=== PATIENT | male | born 1945 | race Caucasian/White ===

== ENCOUNTER 2021-08-26 19:23 | Emergency (ER) | payer MEDICARE, SELFPAY ==
--- NOTE | ~2021-08-26 | CT_ITS ---
EXAMINATION: CT lumbar spine wo con DATE: 08/26/2021 20:13 INDICATION: fall 20 days ago with persistant pain and numbness . TECHNIQUE: Computed tomography (CT) of the thoracic spine was performed without intravenous contrast. Automated exposure control and iterative reconstruction technique were employed. The dose-length pro duct was 1322.53 mGy-cm. COMPARISON: None. FINDINGS: 5 nonrib-bearing lumbar-type vertebral bodies. Pedicles intact. Normal vertebral body align ment. Vertebral body heights preserved. Moderate degenerative disc disease at L4-5. Bilateral L5 pars defects. Normal facets and posterior elements. Right adrenal adenoma. Atherosclerotic abdominal yousif rial calcifications. Bilateral SI joint fusion. IMPRESSION: 1. No acute fracture or traumatic malalignment detected in the lumbar spine. Reviewed, dictated and finalized at location K.
--- NOTE | ~2021-08-26 | XR_ITS ---
EXAM: XR hip RT 2V w AP pelvis DATE: 08/26/2021 20:02 HISTORY: fall 20 days ago persistant pain . COMPARISON: None available. FINDINGS: Decreased mineralization. No fracture or dislocation. No lytic or blastic lesion. Lower shea mbar degenerative change. Bilateral hip osteoarthritis. Scattered enthesopathy. No erosion or periost eal change. Soft tissues within normal limits. IMPRESSION: No acute osseous finding in the pelvis or right hip. Reviewed, dictated and finalized at location K.
[2021-08-26 19:22] VITALS: BP 130/66; PULSE 91; RESP 16; TEMP 36.8; O2SAT 96
[2021-08-26] MEDS: KETOROLAC 30 MG/ML VIAL (*BKC) IM (21:18)
[2021-08-26] MEDS: CYCLOBENZAPRINE HCL 10 MG TABLET PO (21:18)
--- NOTE | 2021-08-26 21:18 | ED.BACK ---
HPI - Back Pain/Injury General Chief Complaint: Back Pain/Injury Stated Complaint: right lower back pain radiating down leg Time Seen by Provider: 08/26/21 19:30 Source: patient History of Present Illness HPI Narrative: Patient presents with low back pain and hip pain. Patient reports he fell in the beginning of the month on concrete he is unsure how happened. He was monitoring his symptoms and his symptoms are worsening is having increasing pain as well as some paresthesias going down his right leg. He has took Tylenol this morning but is not typically taking any medications to control his symptoms he has not previously been evaluated for this. Denies any bowel or bladder incontinence denies any fevers or major changes in weight denies any history of IV drug use. Reports his pain is achy, constant, radiates down his leg, worse with moving his torso. Related Data Allergies Allergy/AdvReac Type Severity Reaction Status Date / Time No Known Allergies Allergy Verified 08/26/21 21:17 Review of Systems Review of Systems: CONSTITUTIONAL: Denies fever, chills, or sweats. EYES: Denies visual changes, redness, or discharge. ENT: Denies rhinorrhea, congestion, sore throat, or otalgia. CARDIOVASCULAR: Denies chest pain, palpitations, or edema. RESPIRATORY: Denies cough or dyspnea. GASTROINTESTINAL: Denies abdominal pain, nausea, vomiting, or diarrhea. GENITOURINARY: Denies dysuria or hematuria. SKIN: Denies rash or itching. MUSCULOSKELETAL: Denies joint pain, or myalgia. NEUROLOGIC: Denies headache, numbness, dizziness, or weakness. PSYCHIATRIC: Denies anxiety or depression. All systems reviewed & are unremarkable except as noted in HPI and below PMFSH Past Medical History Medical History (Updated 08/26/21 @ 21:26 by Romel Douglas MD) A-fib Back pain with history of spinal surgery Diabetes Hypertension Social History Social History (Updated 08/26/21 @ 21:23 by Romel Douglas MD) Living arrangements: with family Exam Narrative: GENERAL: Well-appearing, well-nourished, and in no acute distress. HEAD: Normocephalic, atraumatic. EYES: PERRLA and EOMI. ENT: Nares clear, no rhinorrhea or epistaxis. Mucous membranes moist. NECK: Supple. No masses. No JVD BACK: Moderate tenderness palpation of the right paraspinal muscles around L4 EXTREMITIES: Normal range of motion. No edema. SKIN: Warm, dry, no rash. NEURO: 5 out of 5 strength of bilateral lower extremities with sensation intact to light touch alert and oriented x3. PSYCH: Normal mood and affect. Course Reevaluation(s) Reevaluation #1: Patient reports feeling improved results plan reviewed with patient. Patient is comfortable outpatient plan. Date: 08/26/21 Time: 21:24 Vital Signs Vital signs: Vital Signs Temperature 36.8 C 08/26/21 19:22 Pulse Rate 91 08/26/21 19:22 Respiratory Rate 16 08/26/21 19:22 Blood Pressure 130/66 08/26/21 19:22 Pulse Oximetry 96 08/26/21 19: Temperature 36.8 C 08/26/21 19:22 Pulse Rate 91 08/26/21 19:22 Respiratory Rate 16 08/26/21 19:22 Blood Pressure 130/66 08/26/21 19:22 Pulse Oximetry 96 08/26/21 19:22 MDM - Back Pain/Injury MDM Narrative Medical decision making narrative: H&P as above, vss, pt looks clinically well, exam without focal neurological deficits, imaging without acute process, additional labs/img considered, symptomatic relief available as needed, on reevaluation pt continues to looks clinically well. Suspect muscle strain with sciatica, dns fracture, cord compromise, cauda equina, conus medullaris. plan to tx/monitor as op w/ pcm f/u findings/plan discussed with pt, pt agree/comfortable with plan, return precautions given Imaging Data Radiologist's impression: Impressions Hip/Pelvis X-Ray 08/26/21 20:09 IMPRESSION: No acute osseous finding in the pelvis or right hip. Lumbar Spine CT 08/26/21 20:22 IMPRESSION: 1. No acute fracture or traumatic malalignment det
== END 2021-08-26 21:46 | disposition home or self-care (01) ==
PROVIDERS: Emergency Provider Emergency Medicine
DX: S39.012A Strain of muscle, fascia and tendon of lower back, initial encounter (principal); M54.16 Radiculopathy, lumbar region; I48.91 Unspecified atrial fibrillation; E11.9 Type 2 diabetes mellitus without complications; I10 Essential (primary) hypertension; W19.XXXA Unspecified fall, initial encounter
CPT/HCPCS: 72131; 73502; 96372; 99284; A9270; J1885

== ENCOUNTER 2022-01-25 14:44 | Outpatient (CLI) | payer MEDICARE, SELFPAY ==
--- NOTE | ~2022-01-25 | MR_ITS ---
EXAMINATION: MR cervical spine wo/w con DATE: 01/25/2022 15:42 INDICATION: Neck pain. TECHNIQUE: Magnetic resonance imaging (MRI) of the cervical spine was performed without and with 20 m L MultiHance intravenous contrast. COMPARISON: None FINDINGS: Bone alignment is normal. There are changes of anterior fusion procedure at C6-C7 with inte rbody device. Vertebral body heights are normal. There is moderately decreased disc height at C3-C4. The spinal cord signal intensity is normal. The following disc levels are specifically discussed: C2-C3: There is a central protrusion. There is mild left uncovertebral joint osteoarthritis. There is no facet joint osteoarthritis. There is no neural foraminal stenosis. There is mild central canal st enosis. C3-C4: The disc is bulging. There is mild bilateral uncovertebral joint osteoarthritis. There is mode rate bilateral facet joint osteoarthritis. There is mild bilateral neural foraminal stenosis. There i s mild central canal stenosis. C4-C5: There is a central protrusion. There is mild bilateral uncovertebral joint osteoarthritis. The re is mild bilateral facet joint osteoarthritis. There is no neural foraminal stenosis. There is mild central canal stenosis. C5-C6: The disc is bulging. There is mild bilateral uncovertebral joint osteoarthritis. There is no f acet joint osteoarthritis. There is no neural foraminal stenosis. There is mild central canal stenosi s. C6-C7: There is no uncovertebral joint osteoarthritis. There is no facet joint osteoarthritis. There is no neural foraminal stenosis. There is no central canal stenosis. C7-T1: The disc does not extend beyond the endplate margin. There is no uncovertebral joint osteoarth ritis. There is mild bilateral facet joint osteoarthritis. There is no neural foraminal stenosis. The re is no central canal stenosis. IMPRESSION: 1. Moderate spondylosis at C3-C4 and mild spondylosis at other levels. 2. Anterior fusion procedure at C6-C7. Reviewed, dictated and finalized at location A.
--- NOTE | ~2022-01-25 | XR_ITS ---
EXAMINATION: XR lumbar spine min 4V DATE: 01/25/2022 17:00 INDICATION: Dorsalgia. Right-sided sciatica. TECHNIQUE: 5 views of lumbar spine including flexion and extension views were obtained. COMPARISON: CT lumbar spine 08/26/2021 FINDINGS: Bone alignment is normal. The spine is hypomobile with flexion and extension. There is mild chronic anterior wedging of L1 vertebral body. There is mildly decreased disc height at L4-L5. There are chronic bilateral L5 pars defects. There are endplate osteophytes at most levels. There is multi level mild facet joint osteoarthritis. IMPRESSION: 1. Chronic bilateral L5 pars defects. No spondylolisthesis. 2. Mild lumbar spondylosis. Reviewed, dictated and finalized at location A.
== END 2022-01-25 14:45 | disposition home or self-care (01) ==
PROVIDERS: Visit Provider Neurological Surgery
DX: M54.2 Cervicalgia (principal); M47.812 Spondylosis without myelopathy or radiculopathy, cervical region; M54.9 Dorsalgia, unspecified; M54.31 Sciatica, right side; M47.816 Spondylosis without myelopathy or radiculopathy, lumbar region; Z98.1 Arthrodesis status
CPT/HCPCS: 72110; 72156; A9577

== ENCOUNTER 2022-08-27 19:13 | Inpatient (IN) | payer MEDICARE, SELFPAY ==
--- NOTE | ~2022-08-27 | XR_ITS ---
XR abdomen obstructive series 08/29/2022 08:50 Indication: Pneumatosis intestinalis. Abdominal distention. Procedure: Supine and upright views of abdomen Comparison: 08/28/2022 Findings: Persistent dilated colon, consistent with ileus. Laparotomy staple line noted. There are ch anges of fusion at the lumbosacral junction. There are changes of ventral hernia repair. No free air is identified. Impression: 1: Unchanged distended colon, compatible with ileus. Reviewed, dictated and finalized at location D. Impression: 1: Unchanged distended colon, compatible with ileus.
--- NOTE | ~2022-08-27 | XR_ITS ---
EXAMINATION: XR abdomen obstructive series DATE: 08/28/2022 09:12 INDICATION: Abdominal distention. Right sided abdominal pain. TECHNIQUE: Upright and supine views of the abdomen on 3 radiographs were obtained. COMPARISON: CT abdomen and pelvis 08/27/2022 FINDINGS: The transverse colon and ascending colon are distended. The small bowel is normal in calibe r. Skin jong are noted. No free intraperitoneal gas. There are changes of anterior and posterior f usion procedures in lumbosacral spine. IMPRESSION: 1. Distended colon, consistent with adynamic ileus. Reviewed, dictated and finalized at location A.
--- NOTE | ~2022-08-27 | CT_ITS ---
EXAMINATION: CT abdomen pelvis w con DATE: 08/27/2022 21:15 INDICATION: Right upper quadrant pain TECHNIQUE: Computed tomography (CT) of the abdomen and pelvis was performed with 100 mL Omnipaque-350 intravenous contrast. Automated exposure control and iterative reconstruction technique were employe d. The dose-length product was 1380.58 mGy-cm. COMPARISON: CT lumbar spine 08/26/2021, PET/CT 10/29/2011. FINDINGS: Lower thorax: Coronary artery calcification. Liver: Normal. Biliary/Gallbladder: Gallbladder is normal. No bile duct dilation. Pancreas: No mass or duct dilation. Spleen: Normal. Adrenals: Right adrenal adenoma. Kidneys: No obstructing calcification. No suspicious mass. Moderate bilateral perinephric stranding. No hydronephrosis. GI tract: No small bowel dilation. Marked large bowel dilation involving the cecum, ascending colon, and transverse colon, transition pneumatosis involving the cecum and ascending colon point at the spl enic flexure. Inflammatory change and minimal fluid adjacent to the cecum and ascending colon. Append ix not identified. Diverticulosis without diverticulitis. Mesentery/Peritoneum: No ascites, mass, or free air. Retroperitoneum: No mass. Pelvis: Pelvic organs are within normal limits. Soft Tissues: Soft tissues and body wall unremarkable. Bones: No acute osseous finding. IMPRESSION: Dilated large bowel with pneumatosis from the cecum to the splenic flexure, concerning for toxic coli tis as can be seen with ischemic, infectious, and inflammatory etiologies. Reviewed, dictated and finalized at location K. IMPRESSION: Dilated large bowel with pneumatosis from the cecum to the splenic flexure, con cerning for toxic colitis as can be seen with ischemic, infectious, and inflamm atory etiologies.
--- NOTE | ~2022-08-27 | US_ITS ---
US abdomen limited INDICATION: Elevated liver function tests. Right upper quadrant pain. PROCEDURE: Realtime right upper abdominal ultrasound. COMPARISON: No prior studies for comparison. FINDINGS: The pancreas is normal without focal mass or pancreatic ductal dilation. Liver echotexture is increased, consistent with fatty infiltration of the liver. There is normal directional flow in the portal vein. There is gallbladder wall thickening. No definite gallstones. Common bile duct measures 4 mm. No so nographic Glover's sign. IMPRESSION: 1: Gallbladder wall thickening measuring 5 mm. This could indicate interstitial edema, chronic liver disease or chronic cholecystitis. 2: Hepatic steatosis. Reviewed, dictated and finalized at location B.
[2022-08-27 19:24] VITALS: BP 128/99; PULSE 117; RESP 14; TEMP 36.6; O2SAT 97
--- NOTE | 2022-08-27 19:26 | ECG_ITS ---
Measurements Intervals [place] Rate: 116 P: [place]: 0 QRS: 15 QRSD: 90 T: 7 QT: 311 QTc: 433 Interpretive Statements ATRIAL FIBRILLATION WITH RAPID VENTRICULAR RESPONSE LOW QRS VOLTAGE IN PRECORDIAL LEADS BORDERLINE T WAVE ABNORMALITY- INFERIOR LEADS ABNORMAL ECG NO PREVIOUS ECG AVAILABLE FOR COMPARISON Electronically Signed On 08-27-2022 20:51:45 CDT by Lowell Klein D.O.
[2022-08-27 19:44] LABS: Basophils Absolute Auto 0.1 K/mm3 (0.0-0.1); Basophils Percent Auto 0.4 % (0.2-1.2); Eosinophils Absolute Auto 0.2 K/mm3 (0-0.3); Eosinophils Percent Auto 1.8 % (0-4.4); Hematocrit 35.9 % (42.0-52.0); Hemoglobin 11.5 g/dL (14.0-18.0); Immature Granulocyte Absolute 0.05 K/mm3 (0.00-0.031); Immature Granulocyte Percent A 0.4 % (0-0.5); Lymphocytes Absolute Auto 0.96 K/mm3 (0.9-3.2); Lymphocytes Percent Auto 7.4 % (18.3-44.2); Mean Corpuscular Hemoglobin 29.9 pg (26-34); Mean Corpuscular Volume 93.5 fl (80-100); Mean Platelet Volume 9.6 fl (7.4-10.4); Monocytes Absolute Auto 1.2 K/mm3 (0.1-0.6); Neutrophils Absolute Auto 10.6 K/mm3 (1.3-6.7); Platelet Count Result 386 k/mm3 (150-375); Red Blood Count 3.84 M/mm3 (4.6-6.20)
[2022-08-27 19:57] LABS: Alanine Aminotransferase 82 U/L (6-50); Albumin Level 3.7 g/dL (3.5-5.1); Alkaline Phosphatase 182 U/L (38-126); Anion Gap 4 mmol/L (8-16); Aspartate Amino Transferase 72 U/L (17-59); Bilirubin,Total 1.3 mg/dL (0.2-1.3); Blood Urea Nitrogen 21 mg/dL (9-20); Calcium 9.4 mg/dL (8.4-10.2); Carbon Dioxide 32 mmol/L (22-30); Chloride 104 mmol/L (98-107); Estimated CRCL calculation 61 ml/min; Estimated Glomerular Filt Rate > 60; Glucose 135 mg/dL (65-110); Lipase 110 U/L (23-300); Potassium 3.9 mmol/L (3.4-5.0); Sodium 140 mmol/L (137-145)
--- NOTE | 2022-08-27 20:16 | ED.ABDPAIN ---
HPI - Abdominal Pain General Chief Complaint: Abdominal Pain Stated Complaint: abdominal pain Time Seen by Provider: 08/27/22 20:16 Source: patient Mode of arrival: ambulatory Limitations: no limitations History of Present Illness HPI narrative: 76 years old white male came to the emergency room by private car complaining of right upper quadrant pain that started 8 hours prior to arrival, patient was sitting watching TV suddenly had pain at the right upper quadrant, like a knife, constant. He denies any fever, chills, nausea, vomiting. History of lower back surgery at [facility] 1 week ago. History of hernia repair, diabetes, hypertension, hyperlipidemia, DM and COPD. Patient does not smoke or drink or uses drugs. Related Data Home Medications Medication Instructions Recorded Confirmed albuterol sulfate 90 mcg/actuation 1 inh inhalation Q4H 12/07/21 05/31/22 aerosol inhaler allopurinol 300 mg tablet 150 mg PO DAILY 12/07/21 05/31/22 apixaban 2.5 mg tablet (Eliquis) 2.5 mg PO BID 12/07/21 05/31/22 cholecalciferol (vitamin D3) 10 10 mcg PO DAILY 12/07/21 05/31/22 mcg (400 unit) capsule metformin 500 mg/5 mL oral 500 mg PO DAILY 12/07/21 05/31/22 suspension,extended release metoprolol succinate 50 mg 50 mg PO DAILY 12/07/21 05/31/22 tablet,extended release 24 hr montelukast 10 mg tablet 10 mg PO DAILY 12/07/21 05/31/22 (Singulair) omeprazole 10 mg capsule,delayed 10 mg PO DAILY 12/07/21 05/31/22 release atorvastatin 40 mg tablet 40 mg PO DAILY 06/17/22 fluticasone 250 mcg-salmeterol 50 1 inh inhalation BID 06/17/22 mcg/dose blistr powdr for inhalation (Wixela Inhub) losartan 25 mg tablet 25 mg PO DAILY 06/17/22 tiotropium bromide 1.25 2 puff inhalation DAILY 06/17/22 mcg/actuation mist for inhalation (Spiriva Respimat) Allergies Allergy/AdvReac Type Severity Reaction Status Date / Time No Known Allergies Allergy Verified 08/27/22 19:14 Review of Systems Review of Systems: All systems reviewed & are unremarkable except as noted in HPI and below PMFSH Past Medical History Medical History A-fib Asthma Back pain with history of spinal surgery Cervical spondylosis COPD (chronic obstructive pulmonary disease) Diabetes History of blood clots Hypertension Preoperative clearance Trigger finger Surgical History Surgical History H/O colonoscopy History of back surgery 08/20/22 Family History Family History Father Diabetes mellitus Hypertension Cerebrovascular accident Sibling Cancer Social History Social History Smoking status: Never smoker Alcohol intake: current Substance use: never Lack of Transportation: No Lack of Food: Never True Current Housing: I Have Housing Concerned About Future Housing: No Difficulty Paying Gas/Electric Bills: No Difficulty Paying for Meds: No Currently Unemployed: No Education: High School Diploma/GED Difficulty w/ Childcare or Family Care: No Living arrangements: with family Occupation/Education: retired Gender identity (if verbalized by the patient): Male Sexual Orientation (if Verbalized by the Patient): Straight or Heterosexual Spiritual care concerns: No Agree to blood products: Yes Exam Narrative: General appearance: Well-developed, well-nourished Skin: Normal color Head: Normocephalic, nontraumatic Eyes: Clear conjunctiva ENT: Oropharynx normal, ears normal, nose normal Neck: Supple, nontender Chest and respiratory: Airway patent, no respiratory distress, no accessory muscle use Heart: Regular rate/rhythm Abdomen: Distended abdomen, severe tenderness right upper quadrant, positive Glover sign Vascular: Normal peripheral pulses, normal capillary refill. Musculoskeletal: Normal r
[2022-08-27] MEDS: SODIUM CHLORIDE 0.9% IV 1,000 ML 999 ML IV CONT (20:55)
[2022-08-27] MEDS: HYDROmorphone HCL INJ (*CRX) 1 MG/ML SYR 0.5 MG IV PUSH (20:56)
[2022-08-27] MEDS: ONDANSETRON INJ 4 MG/2 ML VIAL IV PUSH (20:56)
[2022-08-27] MEDS: PIPERACILLN/TAZ 3.375GM/NS50ML 3.375 GM/50 ML BAG IVPB (22:09)
[2022-08-27 22:45] VITALS: BP 112/64; PULSE 98; RESP 16; O2SAT 96
[2022-08-27 23:07] LABS: Appearance Urine Clear (Clear); Bacteria Urine None Seen /hpf; Bilirubin Urine Negative (Negative); Blood Urine Negative (Negative); Color Urine Yellow (Yellow); Glucose Urine UA Negative (Negative); Ketones Urine Trace mg/dL (Negative); Leukocyte Esterase Ur Negative LEU/UL (Negative); Nitrate Urine Negative (Negative); Protein Urine Trace mg/dL (Negative); RBC Urine 0-2 /hpf (0-2); Squamous Epithelial Cell Urine None seen /hpf (Few); WBC Urine 0-5 /hpf; pH Urine 5.5 (5.0-9.0)
[2022-08-27 23:12] LABS: Add Urine Microscopic? NO; Specific Grav Ur 1.054 (1.001-1.035)
[2022-08-28] VITALS (13 sets, daily range): BP systolic 120–145; BP diastolic 58–88; PULSE 66–112; RESP 15–18; TEMP 36.1–36.4; O2SAT 95–100; BMI 35.4
--- NOTE | 2022-08-28 00:06 | ADMGEN ---
This patient, Amadou Houston Sr., was admitted to Medical Room 245-. Patient/family oriented to hospital policies and general routines including ID bracelet, bed and alarms, visiting hours, pain management, procedures, bathroom and other care routines, personal items, smoking policy, room service/diet, and visiting hours. Information on how to activate the Rapid Response Team has been discussed. Patient/Family are encouraged to report perceived risks to care and to ask questions if they do not understand what they are told or what they should do.
[2022-08-28] MEDS: LACTATED RINGERS 1,000 ML 125 ML IV CONT ×3 (00:13→20:30)
[2022-08-28] MEDS: HYDROmorphone HCL INJ (*CRX) 1 MG/ML SYR 0.5 MG IV PUSH ×4 (00:32→19:38)
[2022-08-28] MEDS: METOPROLOL TARTRATE 50 MG TAB PO (02:31)
[2022-08-28] MEDS: PIPERACILLN/TAZ 3.375GM/NS50ML 3.375 GM/50 ML BAG IVPB ×3 (06:36→17:14)
--- NOTE | 2022-08-28 08:05 | WPDGICN ---
Assessment and Plan Assessment and plan (1) Pneumatosis intestinalis: Code(s): K63.89 - Other specified diseases of intestine Status: Acute Assessment and Plan: Pneumatosis intestinalis of the right ascending colon identified on CT scan imaging. Is uncertain the ext significance of this. Plan is to cover patient with broad-spectrum antibiotics at present. Continue to monitor abdominal pain. We will follow with obstructive series. Abdominal distension may be secondary to obesity but may correlate currently this is somewhat uncertain. (2) Elevated LFTs: Code(s): R79.89 - Other specified abnormal findings of blood chemistry Status: Acute Assessment and Plan: Serum transaminases noted to be elevated. Plan to check hepatitis serologies as well as gallbladder ultrasound. It is uncertain if this is related to his abdominal pain. Likely related to alcohol use as he drinks about 4-5 beers a day. (3) RUQ abdominal pain: Code(s): R10.11 - Right upper quadrant pain Status: Acute Assessment and Plan: Abdominal pain which was sudden onset yesterday. Appears to be related to pneumatosis intestinalis but he also has elevated LFTs. Plan to check gallbladder ultrasound. Follow with obstructive series at this point. (4) A-fib: Code(s): I48.91 - Unspecified atrial fibrillation Status: Acute Assessment and Plan: Patient has been treated with anticoagulation because of chronic atrial fibrillation. At present no signs of bleeding. Will need to monitor. (5) Back pain with history of spinal surgery: Code(s): M54.9 - Dorsalgia, unspecified; Z98.890 - Other specified postprocedural states Status: Acute Assessment and Plan: Patient had back surgery 1 week ago. Still recovering. GI Consult Note Consult date/time: 08/28/22 08:05 Reason for consult: Pneumatosis intestinalis on imaging HPI: Amadou Houston Sr. is a 76 year old male I am asked to see at the request of the emergency room because of abnormal CT scan suggesting pneumatosis intestinalis. Patient reports he was in his usual state of health till last evening while sitting watching TV he developed severe stabbing pain in the right upper quadrant of the abdomen. This persisted. For this reason he went to the emergency room. CT scan imaging suggested pneumatosis intestinalis. Patient reports he has had normal bowel movements up until this time. He had a liquid bowel movement yesterday morning. He has noticed nothing abnormal. No fever no bleeding. His abdomen was noted to be distended by the emergency room physician. Patient states that his abdomen has been distended for quite some time perhaps years. No specific change was noted by the patient. Patient admits to drinking 4-5 beers daily on have but she will basis. With no change in this resume. Family history is noncontributory. He has had no recent change in medications. In the past has been treated for atrial fibrillation he has a history of COPD. Family history is noncontributory. Patient reports that he underwent low back spinal surgery with a cage placement 1 week ago Friday. This was performed at [facility] in [facility]. Review of Systems Review of Systems: Review of systems noncontributory. [facility] Past Medical History Medical History A-fib Asthma Back pain with history of spinal surgery Cervical spondylosis COPD (chronic obstructive pulmonary disease) Diabetes History of blood clots Hypertension Preoperative clearance Trigger finger Surgical History Surgical History H/O colonoscopy History of back surgery 08/20/22 Family History Family History Father Diabetes mellitus Hypertension Cerebrovascular accident Sibling C
[2022-08-28 08:09] LABS: Basophils Absolute Auto 0.1 K/mm3 (0.0-0.1); Basophils Percent Auto 0.5 % (0.2-1.2); Eosinophils Absolute Auto 0.2 K/mm3 (0-0.3); Eosinophils Percent Auto 1.9 % (0-4.4); Hematocrit 34.2 % (42.0-52.0); Hemoglobin 10.6 g/dL (14.0-18.0); Immature Granulocyte Absolute 0.05 K/mm3 (0.00-0.031); Immature Granulocyte Percent A 0.4 % (0-0.5); Lymphocytes Absolute Auto 1.13 K/mm3 (0.9-3.2); Lymphocytes Percent Auto 10.1 % (18.3-44.2); Mean Corpuscular Hemoglobin 29.6 pg (26-34); Mean Corpuscular Volume 95.5 fl (80-100); Mean Platelet Volume 10.3 fl (7.4-10.4); Monocytes Absolute Auto 1.2 K/mm3 (0.1-0.6); Monocytes Percent Auto 10.3 % (2.6-8.5); Neutrophils Absolute Auto 8.6 K/mm3 (1.3-6.7); Neutrophils Percent Auto 76.8 % (45.5-73.1); Platelet Count Result 355 k/mm3 (150-375); Red Blood Count 3.58 M/mm3 (4.6-6.20); Red Cell Distribution Width 15.1 % (11.5-14.5); White Blood Count 11.2 K/mm3 (4.5-10.0)
[2022-08-28 08:35] LABS: Hemoglobin A1C 6.6 % (<5.7)
[2022-08-28 09:17] LABS: Alanine Aminotransferase 71 U/L (6-50); Albumin Level 3.7 g/dL (3.5-5.1); Alkaline Phosphatase 161 U/L (38-126); Aspartate Amino Transferase 53 U/L (17-59); Bilirubin,Total 1.5 mg/dL (0.2-1.3)
--- NOTE | 2022-08-28 09:18 | PM.CNGS ---
Assessment and Plan Assessment and plan (1) Pneumatosis intestinalis: Code(s): K63.89 - Other specified diseases of intestine Status: Acute Assessment and Plan: questionable etiology and significance, exam largely benign, agree c IV abx and serial exams for now (2) Elevated LFTs: Code(s): R79.89 - Other specified abnormal findings of blood chemistry Status: Acute Assessment and Plan: RUQ pain, getting RUQ U/S, hepatitis panel, likely secondary to chronic alcohol use History of Present Illness Consult details Consult date: 08/28/22 Reason for consult: abdominal pain Requesting physician: Paulina Renee PA-C Narrative: The patient is a 76-year-old male presenting to the emergency department complaining of right-sided abdominal pain. The patient reports that the pain was sudden in onset starting yesterday afternoon. The patient reports the pain was stabbing, constant and located in the right upper abdomen. The patient reports that he had back surgery at an outside hospital 1 week ago. Patient reports that he has had loose bowel movements since the surgery, the last 1 being yesterday. The patient reports that he has otherwise been in his usual state health. Patient reports normal appetite, no nausea and vomiting, no fevers chills. Review of Systems Constitutional: Constitutional: Reports as per HPI, Denies anorexia, Denies chills, Denies fatigue, Denies increased appetite, Denies lethargy, Denies malaise, Denies poor appetite, Denies weakness, Denies weight gain and Denies weight loss Eyes: Eyes: Reports no additional eye complaints ENT: Reports system reviewed and no additional complaints, except as documented Cardiovascular: Cardiovascular: Reports no additional cardiovascular complaints Respiratory: Respiratory: Reports no additional respiratory complaints Gastrointestinal: Gastrointestinal: Reports as per HPI, Reports abdominal pain, Reports bloating, Denies change in stool character, Denies GI cramping, Reports loose stools, Denies nausea, Denies vomiting and Denies hematemesis Genitourinary: Genitourinary: Reports no additional male genitourinary complaints Musculoskeletal: Musculoskeletal: Reports no additional musculoskeletal complaints Integumentary/Breasts: Skin/Breast: Reports system reviewed and no additional complaints, except as docu Neurologic: Reports system reviewed and no additional complaints, except as documented Psychiatric: Psychiatric: Reports no additional psychiatric complaints Endocrine: Endocrine: Reports no additional endocrine complaints Hematologic/Lymphatic: Hematologic/Lymphatic: Reports no additional hematologic/lymphatic complaints Allergic/Immunologic: Allergic/Immunologic: Reports no additional allergic/immunologic complaints [facility] Past Medical History Medical History A-fib Asthma Back pain with history of spinal surgery Cervical spondylosis COPD (chronic obstructive pulmonary disease) Diabetes History of blood clots Hypertension Preoperative clearance Trigger finger Surgical History Surgical History H/O colonoscopy History of back surgery 08/20/22 Family History Family History Father Diabetes mellitus Hypertension Cerebrovascular accident Sibling Cancer Social History Social History Smoking packs per day: 2.5 Smoking cigarettes per day: 50.0 Smoking status: Former smoker Tobacco type: cigarettes Alcohol intake: current Drinks per week: 18 Substance use: never Substance use type: does not use Lack of Transportation: No Lack of Food: Never True Current Housing: I Have Housing Concerned About Future Housing: No Difficulty Paying Gas/Electric Bills: No Difficulty Paying for Meds: No Cur
[2022-08-28 09:19] LABS: Alanine Aminotransferase 68 U/L (6-50); Albumin Level 3.7 g/dL (3.5-5.1); Alkaline Phosphatase 161 U/L (38-126); Anion Gap 9 mmol/L (8-16); Aspartate Amino Transferase 52 U/L (17-59); Bilirubin,Total 1.5 mg/dL (0.2-1.3); Blood Urea Nitrogen 21 mg/dL (9-20); Calcium 8.8 mg/dL (8.4-10.2); Carbon Dioxide 27 mmol/L (22-30); Chloride 105 mmol/L (98-107); Estimated CRCL calculation 61 ml/min; Estimated Glomerular Filt Rate > 60; Glucose 128 mg/dL (65-110); Potassium 3.8 mmol/L (3.4-5.0); Sodium 141 mmol/L (137-145)
[2022-08-28 12:09] LABS: Glucose Point of Care 122 mg/dl (65-105)
--- NOTE | 2022-08-28 12:32 | PM.IMHP ---
H&P: HPI History of Present Illness Date/Time: 08/28/22 12:32 Chief Complaint: Abdominal distension Narrative: Date of service: 08/28/2022 Amadou Houston is a 76-year-old male with a history of asthma, AFib, COPD diabetes, hypertension, and recent lumbar fusion on 08/20/2022 at [facility] presented to the emergency department on 08/27/2022 with complaints of abdominal pain. Patient stated that he woke up yesterday morning and noticed that his stomach was swollen and he had ?massive pains? along the right side of his abdomen that he rated as 10/10 and described as stabbing in nature. He has had diarrhea for 1 week since his surgery, noting loose brown stools. No blood in his stool. His noticed that his abdomen looked a little bit more swollen 2 days prior to presentation. He has had a decreased appetite since surgery but has still been eating about 2 meals per day and is tolerating solids and liquids without difficulty. He has not had any nausea or vomiting. He denies fevers or chills. No urinary symptoms. on presentation to the emergency department, he was mildly tachycardic, additional vital signs were stable, WBC 13.0, LFTs mildly elevated with normal total bilirubin and, lipase within normal limits, and CT of the abdomen/pelvis showed dilated large bowel with pneumatosis from the cecum to the splenic flexure concerning for toxic colitis as can be seen with ischemic, infectious, and inflammatory etiologies. At the time of my evaluation, the patient feels slightly improved and feels that his abdominal bloating has gone down. Review of Systems Review of Systems: All systems reviewed & are unremarkable except as noted in HPI and below PMFSH Past Medical History Medical History (Updated 08/28/22 @ 13:19 by Paulina Renee PA-C) A-fib Asthma Back pain with history of spinal surgery Cervical spondylosis COPD (chronic obstructive pulmonary disease) Diabetes History of blood clots Hypertension Lung cancer Preoperative clearance Trigger finger Surgical History Surgical History (Updated 08/28/22 @ 13:19 by Paulina Renee PA-C) H/O colonoscopy History of back surgery 08/20/22 History of lobectomy of lung (~2011) Right upper lobe History of umbilical hernia repair (~1999) Family History Family History Father Diabetes mellitus Hypertension Cerebrovascular accident Sibling Cancer Social History Social History (Updated 08/28/22 @ 13:21 by Paulina Renee PA-C) Social History: Patient lives at home with his . He is independent with his daily activities. Primary care provider is Dr. Cabrera. He designates his , Olga Lidia, is his surrogate decision maker. He is a DNR. Smoking packs per day: 3 Smoking cigarettes per day: 60.0 Years smoked: 30 Smoking pack-years: 90.00 Smoking status: Former smoker Tobacco type: cigarettes Alcohol intake: current Drinks per week: 25 Alcohol use details: Patient drinks 3-5 beers 6 days per week Substance use: never Substance use type: does not use Lack of Transportation: No Lack of Food: Never True Current Housing: I Have Housing Concerned About Future Housing: No Difficulty Paying Gas/Electric Bills: No Difficulty Paying for Meds: No Currently Unemployed: No Education: High School Diploma/GED Difficulty w/ Childcare or Family Care: No Living arrangements: with family Occupation/Education: retired Gender identity (if verbalized by the patient): Male Sexual Orientation (if Verbalized by the Patient): Straight or Heterosexual Spiritual care concerns: No Agree to blood products: Yes Meds Home Medications and Allergies Home Medications Medication Instructions Recorded Confirmed Type albuterol sulfate 90 mcg/actuation 1 inh inhalation Q4H PRN Shortness 12/07/21 08/28/22 History aerosol inhaler Of Breath allopurinol 300 m
[2022-08-28 13:36] LABS: Hepatitis B Surface Antigen Negative (Negative)
[2022-08-28 13:42] LABS: HAV RESULT Negative (Negative); Hepatitis B Core IgM Result Negative (Negative)
[2022-08-28 13:53] LABS: Hepatitis C Virus Antibody Negative (Negative)
[2022-08-28] MEDS: UMECLIDINIUM BROMIDE 62.5 MCG ELLIPTA 1 PUFF INHALATION (17:16)
[2022-08-28 18:34] LABS: Glucose Point of Care 112 mg/dl (65-105)
[2022-08-29] VITALS (14 sets, daily range): BP systolic 119–151; BP diastolic 54–79; PULSE 60–145; RESP 18–20; TEMP 36.2–37.1; O2SAT 97–99
[2022-08-29] MEDS: PIPERACILLN/TAZ 3.375GM/NS50ML 3.375 GM/50 ML BAG IVPB ×5 (00:54→23:01)
[2022-08-29] MEDS: HYDROmorphone HCL INJ (*CRX) 1 MG/ML SYR 0.5 MG IV PUSH ×2 (00:56→05:27)
[2022-08-29] MEDS: LACTATED RINGERS 1,000 ML 125 ML IV CONT ×2 (05:09→13:47)
[2022-08-29 05:21] LABS: Hematocrit 33.8 % (42.0-52.0); Hemoglobin 10.5 g/dL (14.0-18.0); Mean Corpuscular HGB Conc 31.1 g/dl (32-36); Mean Corpuscular Hemoglobin 29.4 pg (26-34); Mean Corpuscular Volume 94.7 fl (80-100); Mean Platelet Volume 9.8 fl (7.4-10.4); Platelet Count Result 383 k/mm3 (150-375); Red Blood Count 3.57 M/mm3 (4.6-6.20); Red Cell Distribution Width 14.8 % (11.5-14.5); White Blood Count 10.5 K/mm3 (4.5-10.0)
[2022-08-29 05:34] LABS: Alanine Aminotransferase 63 U/L (6-50); Albumin Level 3.6 g/dL (3.5-5.1); Alkaline Phosphatase 130 U/L (38-126); Anion Gap 10 mmol/L (8-16); Aspartate Amino Transferase 48 U/L (17-59); Bilirubin,Total 1.5 mg/dL (0.2-1.3); Blood Urea Nitrogen 17 mg/dL (9-20); Carbon Dioxide 26 mmol/L (22-30); Chloride 106 mmol/L (98-107); Estimated CRCL calculation 68 ml/min; Estimated Glomerular Filt Rate > 60; Glucose 110 mg/dL (65-110); Sodium 142 mmol/L (137-145)
[2022-08-29 06:06] LABS: Glucose Point of Care 107 mg/dl (65-105)
[2022-08-29] MEDS: UMECLIDINIUM BROMIDE 62.5 MCG ELLIPTA 1 PUFF INHALATION (08:14)
[2022-08-29 08:41] LABS: Glucose Point of Care 141 mg/dl (65-105)
[2022-08-29] MEDS: FOLIC ACID 1 MG TABLET PO (09:04)
[2022-08-29] MEDS: THIAMINE HCL 100 MG TABLET PO (09:04)
--- NOTE | 2022-08-29 09:17 | WPDGIPROGNO ---
Progress Note: A&P Assessment and Plan (1) Pneumatosis intestinalis: Code(s): K63.89 - Other specified diseases of intestine Status: Acute Assessment and Plan: Pneumatosis intestinalis noted in the right colon. Likely this correlates with his ileus identified on obstructive series. In also with his right upper quadrant pain. Pain likely related to the ileus. Would slowly reintroduce diet as he is beginning to have bowel movements and pain is lessened. Start with liquid diet and advance slowly. (2) Ileus: Code(s): K56.7 - Ileus, unspecified Status: Acute Assessment and Plan: Ileus noted on obstructive series likely reactive. Etiology of pneumatosis intestinalis uncertain. Conservative management is advised at this time. Continue broad-spectrum antibiotic coverage. (3) Elevated LFTs: Code(s): R79.89 - Other specified abnormal findings of blood chemistry Status: Acute Assessment and Plan: LFTs have improved. Ultrasound reveals no gallstones. Suspect these are related to his ongoing daily alcohol use. (4) RUQ abdominal pain: Code(s): R10.11 - Right upper quadrant pain Status: Acute Assessment and Plan: Right upper quadrant pain related to ileus. Patient beginning to pass flatus. Will slowly reintroduce diet and activity. (5) A-fib: Code(s): I48.91 - Unspecified atrial fibrillation Status: Acute Assessment and Plan: (6) Daily consumption of alcohol: Code(s): Z78.9 - Other specified health status Status: Acute Assessment and Plan: Daily alcohol use described. Would recommend limiting alcohol use. Likely this contributes to elevated LFTs on presentation. Subjective Date/time seen: 08/29/22 09:17 Interval history: Patient alert comfortable this morning. Patient reports mild improvement in right upper quadrant discomfort. He remains mildly tender. He is hungry and wishes to eat. He is passing flatus. Several bowel movements reported. No significant fever described. Review of Systems Review of Systems: Review of systems noncontributory. Exam Narrative: Physical exam reveals patient to be alert. Vital signs stable. HEENT exam is unremarkable. Lungs are clear. Heart without murmur. Abdomen is obese. Bowel sounds are present soft mild tenderness in the right upper quadrant. Objective Data Vital Signs Vital Signs: Vital Signs - 24 hr 08/28/22 10:18 08/28/22 12:00 08/28/22 16:37 Temperature 97.4 F L 97.4 F L Pulse Rate 103 H 91 99 Respiratory Rate 18 18 Blood Pressure 120/68 145/88 H Pulse Oximetry 97 95 Oxygen Delivery 08/28/22 16:00 08/28/22 16:00 08/28/22 20:54 Temperature 97.0 F L Pulse Rate 102 H 92 Respiratory Rate 18 Blood Pressure 145/88 H 122/58 L Pulse Oximetry 96 Oxygen Delivery 08/29/22 02:45 08/28/22 20:00 08/29/22 00:00 Temperature 97.4 F L Pulse Rate 99 109 H 105 H Respiratory Rate 20 Blood Pressure 121/65 Pulse Oximetry 98 Oxygen Delivery 08/29/22 04:00 08/28/22 21:41 08/29/22 04:00 Temperature 97.5 F L Pulse Rate 99 60 Respiratory Rate 20 Blood Pressure 151/73 H Pulse Oximetry 96 99 Oxygen Delivery Room Air 08/29/22 08:18 Temperature Pulse Rate Respiratory Rate Blood Pressure Pulse Oximetry 97 Oxygen Delivery Room Air Intake/Output Intake/Output: Intake & Output 08/26/22 08/27/22 08/28/22 08/29/22 23:59 23:59 23:59 23:59 Intake Total 1050 2150 1600 Output Total 400 Balance 1050 1750 1600 Meds/Results Medications: Active Medications Generic Name Dose Route Start Last Admin Trade Name Freq PRN Reason Stop Dose Admin Albuterol 1 puff 08/28/22 07:50 Albuterol Sulfate (*Sp) Aerosol 1 Puff INHALATION Q4H PRN Shortness Of Breath Dextrose 12.5 gm 08/28/22 07:49 Dextrose 50% 25 Gm/50 Ml Syringe IV PUSH PRN PRN Hyp
[2022-08-29] MEDS: METOPROLOL TARTRATE INJ 5 MG/5 ML VIAL IV PUSH (09:54)
--- NOTE | 2022-08-29 11:08 | PM.PNGS ---
Progress Note: A&P Assessment and Plan (1) Ileus: Code(s): K56.7 - Ileus, unspecified Status: Acute Assessment and Plan: secondary to recent back surgery, resolving, slowly ADAT (2) Pneumatosis intestinalis: Code(s): K63.89 - Other specified diseases of intestine Status: Acute Assessment and Plan: unknown etiology, exam cont to be largely benign, cont to observe (3) Elevated LFTs: Code(s): R79.89 - Other specified abnormal findings of blood chemistry Status: Acute Assessment and Plan: U/S reviewed, no cholelithiasis, likely secondary to ETOH use Subjective Subjective Date/Time Seen: 08/29/22 11:08 Interval history: feels better today, pain improved, +bowel fxn Review of Systems Review of Systems: All systems reviewed & are unremarkable except as noted in HPI and below Exam Const: General: cooperative, comfortable and no acute distress Resp: Auscultation: clear to auscultation bilaterally Cardio: Rate: regular rate Rhythm: regular rhythm GI: Inspection: normal to inspection and distended GI Palp: Yes abdominal tenderness, Yes Soft to palpation, Yes Tenderness to palpation present (GI), No Guarding due to palpation present (GI) and No Rigid due to palpation Objective Data Vital Signs Vital Signs: Vital Signs - 24 hr 08/28/22 12:00 08/28/22 16:37 08/28/22 16:00 Temperature 36.3 C L Pulse Rate 91 99 Respiratory Rate 18 Blood Pressure 145/88 H 145/88 H Pulse Oximetry 95 Oxygen Delivery 08/28/22 16:00 08/28/22 20:54 08/29/22 02:45 Temperature 36.1 C L 36.3 C L Pulse Rate 102 H 92 99 Respiratory Rate 18 20 Blood Pressure 122/58 L 121/65 Pulse Oximetry 96 98 Oxygen Delivery 08/28/22 20:00 08/29/22 00:00 08/29/22 04:00 Temperature Pulse Rate 109 H 105 H 99 Respiratory Rate Blood Pressure Pulse Oximetry Oxygen Delivery 08/28/22 21:41 08/29/22 04:00 08/29/22 08:18 Temperature 36.4 C L Pulse Rate 60 Respiratory Rate 20 Blood Pressure 151/73 H Pulse Oximetry 96 99 97 Oxygen Delivery Room Air Room Air 08/29/22 09:12 08/29/22 09:54 08/29/22 09:04 Temperature 36.2 C L Pulse Rate 105 H 145 H Respiratory Rate 18 18 Blood Pressure 143/67 H Pulse Oximetry 98 98 Oxygen Delivery Room Air 08/29/22 08:00 Temperature Pulse Rate 111 H Respiratory Rate Blood Pressure Pulse Oximetry Oxygen Delivery Intake/Output Intake/Output: Intake & Output 08/26/22 08/27/22 08/28/22 08/29/22 23:59 23:59 23:59 23:59 Intake Total 1050 2150 2180 Output Total 400 Balance 1050 1750 2180 Meds/Results Medications: Active Medications Generic Name Dose Route Start Last Admin Trade Name Freq PRN Reason Stop Dose Admin Albuterol 1 puff 08/28/22 07:50 Albuterol Sulfate (*Sp) Aerosol 1 Puff INHALATION Q4H PRN Shortness Of Breath Dextrose 12.5 gm 08/28/22 07:49 Dextrose 50% 25 Gm/50 Ml Syringe IV PUSH PRN PRN Hypoglycemia Protocol Folic Acid 1 mg 08/29/22 09:00 08/29/22 09:04 Folic Acid 1 Mg Tablet PO 1 mg DAILY TALA Administration Glucagon 1 mg 08/28/22 07:49 Glucagon For Inj 1 Mg Vial IM PRN PRN Hypoglycemia Protocol Glucose 15 gm 08/28/22 07:49 Glucose Oral Gel 15 Gm Of Glucse In 37.5 Gm Tube PO PRN PRN Hypoglycemia Protocol Hydromorphone HCl 0.5 mg 08/27/22 22:27 08/29/22 05:27 Hydromorphone Hcl Inj (*Crx) 1 Mg/Ml Syr IV PUSH 0.5 mg Q4H PRN Administration Pain Rated 7-10 Piperacillin/Tazobactam/Dextrose 3.375 gm in 50 mls @ 100 mls/hr 08/28/22 06:00 08/29/22 06:04 Zosyn 3.375 Gm/Ns 50 Ml IVPB Infused Q6H TALA Infusion Lactated Ringer's 1,000 mls @ 125 mls/hr 08/27/22 22:30 08/29/22 05:09 Lr - Lactated Ringers Iv IV CONT 125 mls/hr .Q8H TALA Administration Dextrose 1,000 mls @ 100 mls/hr 08/28/22 07:49 Dextrose 5% 1,000 Ml IVPB
[2022-08-29 12:30] LABS: Glucose Point of Care 160 mg/dl (65-105)
--- NOTE | 2022-08-29 14:48 | PM.IMPN ---
Progress Note: A&P Assessment and Plan (1) Pneumatosis intestinalis: Code(s): K63.89 - Other specified diseases of intestine Status: Acute Assessment and Plan: Evident on CT on presentation. Exact etiology of this is unclear. Appreciate GI and general surgery recommendations. Continue zosyn for broad-spectrum coverage. Advance to clear liquid diet. continue with gentle IV fluids until better tolerating diet. Patient is afebrile. Mild leukocytosis which is nearly resolved. Continue to monitor with serial exams (2) Ileus: Code(s): K56.7 - Ileus, unspecified Status: Acute Assessment and Plan: KUB shows unchanged distended colon, compatible with ileus. Appreciate GI and general surgery recommendations. Continue to slowly advance diet as tolerated (3) Elevated LFTs: Code(s): R79.89 - Other specified abnormal findings of blood chemistry Status: Acute Assessment and Plan: Mild transaminitis, improved from admission. May be related to daily alcohol use. Hepatitis panel negative. RUQ US showed gallbladder wall thickening measuring 5 mm which could indicate intersitial edema, chronic liver disease, or chronic cholecystitis; hepatic steatosis. Appreciate general surgery and GI recommendations (4) RUQ abdominal pain: Code(s): R10.11 - Right upper quadrant pain Status: Acute Assessment and Plan: See above (5) Lumbar spondylosis: Code(s): M47.816 - Spondylosis without myelopathy or radiculopathy, lumbar region Status: Acute Assessment and Plan: S/p surgical intervention (patient describes what sounds like lumbar fusion, not entirely clear) on 08/20/[address] [facility] [address]. Guzman. Postop visit scheduled for 09/06/2022. No acute issues at this time (6) A-fib: Code(s): I48.91 - Unspecified atrial fibrillation Status: Acute Assessment and Plan: Patient with history of atrial fibrillation maintained on chronic anticoagulation. Eliquis has been held perioperatively, continue to hold at this time. Heart rate is stable. Resume home metoprolol (7) Diabetes: Code(s): E11.9 - Type 2 diabetes mellitus without complications Status: Acute Assessment and Plan: A1c is 6.6. Hold home metformin. Continue accu-Cheks, sliding scale insulin, hypoglycemic protocol (8) Hypertension: Code(s): I10 - Essential (primary) hypertension Status: Acute Assessment and Plan: Blood pressure stable. Resume home losartan. Monitor BP trends (9) COPD with asthma: Code(s): J44.9 - Chronic obstructive pulmonary disease, unspecified Status: Acute Assessment and Plan: No acute issues. Continue home inhalers (10) Daily consumption of alcohol: Code(s): Z78.9 - Other specified health status Status: Acute Assessment and Plan: Patient drinks 3-5 beers per day. Does not drink beer on . Reports no history of alcohol withdrawal symptoms in the past and has been able to go several days without drinking without symptoms. CIWA scores 0. Discontinue CIWA protocol. Continue thiamine and folic acid. Subjective Date/time seen: 08/29/22 14:48 Interval history: Date of service: 08/29/2022 Amadou Houston is a 76-year-old male with a history of asthma, AFib, COPD diabetes, hypertension, and recent lumbar fusion on 08/20/2022 who is seen in follow-up for ileus. Patient reports he is feeling better today. He still has some right upper quadrant sharp/stabbing pain rated 5-6/10, however overall reports feeling significantly improved. He is tolerating clear liquids without difficulty. Continues to feel bloating. Denies nausea, vomiting, fever, or chills. Reports having a loose bowel movement this morning. Review of Systems Review of Systems: All systems reviewed & are unremarkable except as noted in HPI and below Exam Narr
[2022-08-29] MEDS: ALBUTEROL SULFATE (*SP) AEROSOL 1 PUFF INHALATION (15:31)
[2022-08-29] MEDS: METOPROLOL TARTRATE 50 MG TAB PO (16:34)
[2022-08-29 17:12] LABS: Glucose Point of Care 95 mg/dl (65-105)
[2022-08-29 20:29] LABS: Glucose Point of Care 160 mg/dl (65-105)
[2022-08-30] VITALS: PULSE 98
[2022-08-30] MEDS: LACTATED RINGERS 1,000 ML 100 ML IV CONT (00:50)
[2022-08-30 04:00] VITALS: PULSE 101
[2022-08-30 04:45] VITALS: BP 130/71; PULSE 92; RESP 18; TEMP 36.3; O2SAT 100
[2022-08-30 05:05] LABS: Hematocrit 33.1 % (42.0-52.0); Hemoglobin 10.4 g/dL (14.0-18.0); Mean Corpuscular HGB Conc 31.4 g/dl (32-36); Mean Corpuscular Hemoglobin 29.6 pg (26-34); Mean Corpuscular Volume 94.3 fl (80-100); Mean Platelet Volume 9.7 fl (7.4-10.4); Platelet Count Result 401 k/mm3 (150-375); Red Blood Count 3.51 M/mm3 (4.6-6.20); Red Cell Distribution Width 14.7 % (11.5-14.5); White Blood Count 10.2 K/mm3 (4.5-10.0)
[2022-08-30 05:22] LABS: Anion Gap 4 mmol/L (8-16); Blood Urea Nitrogen 11 mg/dL (9-20); Calcium 8.8 mg/dL (8.4-10.2); Carbon Dioxide 33 mmol/L (22-30); Chloride 104 mmol/L (98-107); Estimated CRCL calculation 68 ml/min; Estimated Glomerular Filt Rate > 60; Glucose 123 mg/dL (65-110); Potassium 3.4 mmol/L (3.4-5.0); Sodium 141 mmol/L (137-145)
[2022-08-30] MEDS: PIPERACILLN/TAZ 3.375GM/NS50ML 3.375 GM/50 ML BAG IVPB (05:31)
[2022-08-30] MEDS: UMECLIDINIUM BROMIDE 62.5 MCG ELLIPTA 1 PUFF INHALATION (07:50)
[2022-08-30 07:51] VITALS: PULSE 96; RESP 18; O2SAT 97
[2022-08-30 08:00] VITALS: PULSE 102
[2022-08-30 08:34] LABS: Glucose Point of Care 117 mg/dl (65-105)
[2022-08-30 08:37] VITALS: PULSE 96
[2022-08-30] MEDS: FOLIC ACID 1 MG TABLET PO (08:37)
[2022-08-30] MEDS: THIAMINE HCL 100 MG TABLET PO (08:37)
[2022-08-30] MEDS: LOSARTAN POTASSIUM 12.5 MG TABLET PO (08:37)
[2022-08-30] MEDS: METOPROLOL TARTRATE 50 MG TAB PO (08:37)
--- NOTE | 2022-08-30 08:40 | WPDGIPROGNO ---
Progress Note: A&P Assessment and Plan (1) Pneumatosis intestinalis: Code(s): K63.89 - Other specified diseases of intestine Status: Acute Assessment and Plan: Pneumatosis intestinalis of uncertain etiology. 7-10 day course of antibiotics encourage. (2) Ileus: Code(s): K56.7 - Ileus, unspecified Status: Acute Assessment and Plan: Patient has ileus could be related to back surgery. Cannot exclude it being related to pneumatosis. This appears to have resolved as patient is now having Good bowel habits. Plan to increase diet discharge when okay with primary care service. (3) RUQ abdominal pain: Code(s): R10.11 - Right upper quadrant pain Status: Acute Assessment and Plan: Right upper quadrant pain resolving with resolution of ileus. (4) Daily consumption of alcohol: Code(s): Z78.9 - Other specified health status Status: Acute Assessment and Plan: Patient drinks alcohol 4-5 cans of beer a day this likely accounts for his elevated LFTs. Would recommend decreasing in at least limiting his alcohol intake. LFTs are now resolved. (5) Back pain with history of spinal surgery: Code(s): M54.9 - Dorsalgia, unspecified; Z98.890 - Other specified postprocedural states Status: Acute Subjective Date/time seen: 08/30/22 08:40 Interval history: Patient alert comfortable this morning. Reports he passed 2 large bowel movements. Patient states his abdominal pain is diminished greatly. He is hungry and anxious for regular food. Wishes to go home. Review of Systems Review of Systems: Review of systems noncontributory. Exam Narrative: Physical exam reveals patient be alert. Vital signs stable. HEENT exam is unremarkable. Patient is anicteric. Lungs are clear. Heart without murmur. Abdomen is obese. bowel sounds are present soft nontender with no organomegaly. Objective Data Vital Signs Vital Signs: Vital Signs - 24 hr 08/29/22 09:12 08/29/22 09:54 08/29/22 09:04 Temperature 97.2 F L Pulse Rate 105 H 145 H Respiratory Rate 18 18 Blood Pressure 143/67 H Pulse Oximetry 98 98 Oxygen Delivery Room Air 08/29/22 12:04 08/29/22 14:54 08/29/22 16:00 Temperature 98.7 F Pulse Rate 102 H 105 H 104 H Respiratory Rate 18 Blood Pressure 119/54 L Pulse Oximetry 98 Oxygen Delivery 08/29/22 16:34 08/29/22 20:53 08/29/22 20:00 Temperature 98.5 F Pulse Rate 105 H 101 H Respiratory Rate 18 Blood Pressure 140/79 140/79 Pulse Oximetry 97 Oxygen Delivery 08/29/22 20:00 08/29/22 20:00 08/30/22 00:00 Temperature Pulse Rate 94 98 Respiratory Rate Blood Pressure Pulse Oximetry Oxygen Delivery Room Air 08/30/22 04:00 08/30/22 04:45 08/30/22 07:51 Temperature 97.4 F L Pulse Rate 101 H 92 96 Respiratory Rate 18 18 Blood Pressure 130/71 Pulse Oximetry 100 97 Oxygen Delivery Room Air 08/30/22 08:37 Temperature Pulse Rate 96 Respiratory Rate Blood Pressure Pulse Oximetry Oxygen Delivery Intake/Output Intake/Output: Intake & Output 08/27/22 08/28/22 08/29/22 08/30/22 23:59 23:59 23:59 23:59 Intake Total 1050 2150 4250 1150 Output Total 400 Balance 1050 1750 4250 1150 Meds/Results Medications: Active Medications Generic Name Dose Route Start Last Admin Trade Name Freq PRN Reason Stop Dose Admin Albuterol 1 puff 08/28/22 07:50 08/29/22 15:31 Albuterol Sulfate (*Sp) Aerosol 1 Puff INHALATION 1 puff Q4H PRN Administration Shortness Of Breath Dextrose 12.5 gm 08/28/22 07:49 Dextrose 50% 25 Gm/50 Ml Syringe IV PUSH PRN PRN Hypoglycemia Protocol Folic Acid 1 mg 08/29/22 09:00 08/30/22 08:37 Folic Acid 1 Mg Tablet PO 1 mg DAILY TALA Administration Glucagon 1 mg 08/28/22 07:49 Glucagon For Inj 1 Mg Vial IM PRN PRN Hypoglycemia Protocol Glucose 15 g
--- NOTE | 2022-08-30 08:41 | PM.PNGS ---
Progress Note: A&P Assessment and Plan (1) Ileus: Code(s): K56.7 - Ileus, unspecified Status: Acute Assessment and Plan: resolved, sanaz diet, +bowel fxn, no acute surgical issues, will s/o, call c ?s, issues (2) Pneumatosis intestinalis: Code(s): K63.89 - Other specified diseases of intestine Status: Acute Assessment and Plan: likely secondary to ileus, no acute intervention required, will likely need colonoscopy in the future Subjective Subjective Date/Time Seen: 08/30/22 08:41 Interval history: feels good, sanaz diet, +bowel fxn Review of Systems Review of Systems: All systems reviewed & are unremarkable except as noted in HPI and below Exam Const: General: cooperative, comfortable and no acute distress Resp: Auscultation: clear to auscultation bilaterally Cardio: Rate: regular rate Rhythm: regular rhythm GI: Inspection: normal to inspection and distended GI Palp: No abdominal tenderness, Yes Soft to palpation, No Tenderness to palpation present (GI), No Guarding due to palpation present (GI) and No Rigid due to palpation Objective Data Vital Signs Vital Signs: Vital Signs - 24 hr 08/29/22 09:12 08/29/22 09:54 08/29/22 09:04 Temperature 36.2 C L Pulse Rate 105 H 145 H Respiratory Rate 18 18 Blood Pressure 143/67 H Pulse Oximetry 98 98 Oxygen Delivery Room Air 08/29/22 12:04 08/29/22 14:54 08/29/22 16:00 Temperature 37.1 C Pulse Rate 102 H 105 H 104 H Respiratory Rate 18 Blood Pressure 119/54 L Pulse Oximetry 98 Oxygen Delivery 08/29/22 16:34 08/29/22 20:53 08/29/22 20:00 Temperature 36.9 C Pulse Rate 105 H 101 H Respiratory Rate 18 Blood Pressure 140/79 140/79 Pulse Oximetry 97 Oxygen Delivery 08/29/22 20:00 08/29/22 20:00 08/30/22 00:00 Temperature Pulse Rate 94 98 Respiratory Rate Blood Pressure Pulse Oximetry Oxygen Delivery Room Air 08/30/22 04:00 08/30/22 04:45 08/30/22 07:51 Temperature 36.3 C L Pulse Rate 101 H 92 96 Respiratory Rate 18 18 Blood Pressure 130/71 Pulse Oximetry 100 97 Oxygen Delivery Room Air 08/30/22 08:37 Temperature Pulse Rate 96 Respiratory Rate Blood Pressure Pulse Oximetry Oxygen Delivery Intake/Output Intake/Output: Intake & Output 08/27/22 08/28/22 08/29/22 08/30/22 23:59 23:59 23:59 23:59 Intake Total 1050 2150 4250 1150 Output Total 400 Balance 1050 1750 4250 1150 Meds/Results Medications: Active Medications Generic Name Dose Route Start Last Admin Trade Name Freq PRN Reason Stop Dose Admin Albuterol 1 puff 08/28/22 07:50 08/29/22 15:31 Albuterol Sulfate (*Sp) Aerosol 1 Puff INHALATION 1 puff Q4H PRN Administration Shortness Of Breath Dextrose 12.5 gm 08/28/22 07:49 Dextrose 50% 25 Gm/50 Ml Syringe IV PUSH PRN PRN Hypoglycemia Protocol Folic Acid 1 mg 08/29/22 09:00 08/30/22 08:37 Folic Acid 1 Mg Tablet PO 1 mg DAILY TALA Administration Glucagon 1 mg 08/28/22 07:49 Glucagon For Inj 1 Mg Vial IM PRN PRN Hypoglycemia Protocol Glucose 15 gm 08/28/22 07:49 Glucose Oral Gel 15 Gm Of Glucse In 37.5 Gm Tube PO PRN PRN Hypoglycemia Protocol Hydromorphone HCl 0.5 mg 08/27/22 22:27 08/29/22 05:27 Hydromorphone Hcl Inj (*Crx) 1 Mg/Ml Syr IV PUSH 0.5 mg Q4H PRN Administration Pain Rated 7-10 Piperacillin/Tazobactam/Dextrose 3.375 gm in 50 mls @ 100 mls/hr 08/28/22 06:00 08/30/22 06:01 Zosyn 3.375 Gm/Ns 50 Ml IVPB Infused Q6H TALA Infusion Lactated Ringer's 1,000 mls @ 100 mls/hr 08/27/22 22:30 08/30/22 00:50 Lr - Lactated Ringers Iv IV CONT 100 mls/hr .Q10H TALA Administration Dextrose 1,000 mls @ 100 mls/hr 08/28/22 07:49 Dextrose 5% 1,000 Ml IVPB PRN PRN Hypoglycemia Protocol Losartan Potassium 12.5 mg 08/30/22 09:00 08/30/22 08:37 Losartan Potassium 12.5 Mg
--- NOTE | 2022-08-30 12:37 | PM.DS ---
DS: Admitting Diagnosis Discharge Date 08/30/2022 Admitting Diagnosis Pneumatosis intestinalis DS: Discharge Diagnosis Discharge Diagnosis (1) Pneumatosis intestinalis: Code(s): K63.89 - Other specified diseases of intestine Status: Acute Assessment and Plan: Evident on CT on presentation. Exact etiology of this is unclear, possibly infection. Patient was seen in consultation by GI and General surgery during admission. Received IV Zosyn for broad-spectrum coverage and was rehydrated with IV fluids. Diet was slowly advanced and patient was eventually able to tolerate a diabetic diet. Leukocytosis nearly resolved. Patient remained afebrile. Will continue ampicillin 500 mg q.6h to complete a 7 day course per GI recommendations. Case was discussed with ID PharmD (2) Ileus: Code(s): K56.7 - Ileus, unspecified Status: Resolved Assessment and Plan: KUB with findings compatible with ileus. Possibly related to recent back surgery. Evaluated by GI and General surgery. Diet was slowly advanced and bowel function returned. (3) Elevated LFTs: Code(s): R79.89 - Other specified abnormal findings of blood chemistry Status: Acute Assessment and Plan: Most likely related to daily alcohol use. Hepatitis panel was negative. RUQ US showed gallbladder wall thickening measuring 5 mm which could indicate intersitial edema, chronic liver disease, or chronic cholecystitis; hepatic steatosis. LFTs with overall improvement, total bilirubin and AST normalized. Reduction of alcohol intake discussed. (4) RUQ abdominal pain: Code(s): R10.11 - Right upper quadrant pain Status: Acute Assessment and Plan: As above (5) Lumbar spondylosis: Code(s): M47.816 - Spondylosis without myelopathy or radiculopathy, lumbar region Status: Acute Assessment and Plan: S/p surgical intervention (patient describes what sounds like lumbar fusion, not entirely clear) on 08/20/2022 at [facility] by Dr. Guzman. Postop visit scheduled for 09/06/2022. No acute issues at this time. Continue outpatient follow up. (6) A-fib: Code(s): I48.91 - Unspecified atrial fibrillation Status: Acute Assessment and Plan: Patient with history of atrial fibrillation maintained on chronic anticoagulation. Eliquis has been held perioperatively per his neurosurgeon, continue to hold until follow-up. Heart rate remained stable. Continue home metoprolol (7) Diabetes: Code(s): E11.9 - Type 2 diabetes mellitus without complications Status: Acute Assessment and Plan: A1c is 6.6. Blood sugars well controlled during admission. Continue home metformin (8) Hypertension: Code(s): I10 - Essential (primary) hypertension Status: Acute Assessment and Plan: Blood pressure remained stable. Continue home losartan (9) COPD with asthma: Code(s): J44.9 - Chronic obstructive pulmonary disease, unspecified Status: Acute Assessment and Plan: No acute issues. Continue home inhalers (10) Daily consumption of alcohol: Code(s): Z78.9 - Other specified health status Status: Acute Assessment and Plan: Patient drinks 3-5 beers per day. Does not drink beer on . Reports no history of alcohol withdrawal symptoms in the past and has been able to go several days without drinking without symptoms. CIWA protocol implemented in scores remain dizzy your 0. Supplemented with thiamine and folic acid. Recommended limitation alcohol intake DS: Summary Hospital Course Hospital Course: Date of admission: 08/28/2022 Date of discharge: 08/30/2022 Amadou Houston is a 76-year-old male with a history of asthma, AFib, COPD diabetes, hypertension, and recent lumbar fusion on 08/20/2022 at [facility] presented to the emergency department on 08/27/2022 with complaints of abdo
[2022-08-30 12:44] LABS: Glucose Point of Care 145 mg/dl (65-105)
[2022-08-30 12:52] LABS: Alanine Aminotransferase 55 U/L (6-50); Albumin Level 3.4 g/dL (3.5-5.1); Alkaline Phosphatase 149 U/L (38-126); Aspartate Amino Transferase 46 U/L (17-59); Bilirubin,Total 0.9 mg/dL (0.2-1.3)
== END 2022-08-30 13:20 | disposition home or self-care (01) | DRG 394 ==
LOC: ANHED 22:42 → ANH2MED 23:12
PROVIDERS: Internal Medicine Gastroenterology; Admitting Provider Internal Medicine; Emergency Provider Emergency Medicine; Visit Provider Physician Assistant
DX: K63.89 Other specified diseases of intestine (principal); K91.89 Other postprocedural complications and disorders of digestive system; M47.816 Spondylosis without myelopathy or radiculopathy, lumbar region; I48.91 Unspecified atrial fibrillation; E11.9 Type 2 diabetes mellitus without complications; J44.9 Chronic obstructive pulmonary disease, unspecified; I10 Essential (primary) hypertension; F10.90 Alcohol use, unspecified, uncomplicated; R79.89 Other specified abnormal findings of blood chemistry; K56.7 Ileus, unspecified; E78.5 Hyperlipidemia, unspecified; Z79.01 Long term (current) use of anticoagulants; Z79.84 Long term (current) use of oral hypoglycemic drugs; Z98.1 Arthrodesis status
CPT/HCPCS: 36415; 74019; 74177; 76705; 80048; 80053; 80074; 80076; 81003; 82948; 83036; 83605; 83690; 85025; 85027; 85055; 93005; 94640; 96365; 96375; 99285; A9270; J1170; J2405; J2543; J7030; J7120; Q9967

== ENCOUNTER 2023-02-25 10:45 | Outpatient (CLI) | payer MEDICARE, SELFPAY ==
--- NOTE | ~2023-02-25 | XR_ITS ---
XR abdomen/kub 1V 02/25/2023 11:07 INDICATION: Left lower quadrant pain TECHNIQUE: KUB COMPARISON: 08/29/2022 and 08/28/2022 FINDINGS: Bowel gas pattern is normal. There is no evidence of free air, mass, organomegaly, ascites or obstruction. No abnormal calculi are seen. The bones appear intact. There are are surgical riley ges at the lumbosacral junction. There are changes of ventral abdominal wall hernia repair. Linear ca lcifications overlie the left kidney, possibly vascular. IMPRESSION: 1: No acute abdominal abnormality identified. Reviewed, dictated and finalized at location L. NURSE
== END 2023-02-25 10:46 | disposition home or self-care (01) ==
LOC: ANHIMG 10:52
PROVIDERS: PCP Family Medicine; Visit Provider Nurse Practitioner
DX: R19.8 Other specified symptoms and signs involving the digestive system and abdomen (principal); K63.89 Other specified diseases of intestine
CPT/HCPCS: 74018

== ENCOUNTER 2023-03-06 07:08 | Outpatient (CLI) | payer MEDICARE, SELFPAY ==
--- NOTE | ~2023-03-06 | CT_ITS ---
CT of the Abdomen and Pelvis: Indication: Abdominal Technique: 2.5 mm axial scans were obtained through the abdomen and pelvis following intravenous adm inistration of 100 cc of Omnipaque 350. Dose reduction technique was used on this scan by utilizing a utomated exposure control and iterative reconstruction technique. The dose-length product (DLP) was 1 154.64 mGy-cm. COMPARISON: 08/27/2022 Findings: Scans through the lung bases demonstrate irregular airspace opacity/nodularity at the medi al right lung base (axial image 22), nonspecific.. The liver, spleen, pancreas, gallbladder, left adrenal gland, and kidneys are within normal limits. S mall right adrenal adenoma present (Hounsfield units -14). There are atherosclerotic calcifications o f the aorta. No lymphadenopathy. No bowel obstruction or bowel wall thickening. There is no evidence to suggest acute appendicitis. Images through the pelvis were performed. Urinary bladder unremarkable. Prostate gland minimally enla rged. No ascites. Impression: Irregular nodularity/airspace opacity medial right lung base, nonspecific. This could represent focal pneumonia or atelectatic change, versus less likely pulmonary nodule. Follow-up exam in 1-3 months r ecommended to reassess. No other significant findings. Reviewed, dictated and finalized at location M. PREPARATION SUPERVISOR Impression: Irregular nodularity/airspace opacity medial right lung base, nonspecific. This could represent focal pneumonia or atelectatic change, versus less likely pulm onary nodule. Follow-up exam in 1-3 months recommended to reassess. No other significant findings.
[2023-03-06 07:31] LABS: Estimated Glomerular Filt Rate 54
== END 2023-03-06 07:09 | disposition home or self-care (01) ==
PROVIDERS: PCP Family Medicine; Visit Provider Nurse Practitioner
DX: R10.32 Left lower quadrant pain (principal)
CPT/HCPCS: 74177; Q9967

== ENCOUNTER 2023-04-25 08:55 | Outpatient (CLI) | payer MEDICARE, SELFPAY ==
--- NOTE | ~2023-04-25 | NM_ITS ---
EXAMINATION: NM radha stress w perfusion DATE: 04/25/2023 12:55 INDICATION: Shortness of breath TECHNIQUE: Rest images were obtained following intravenous administration of 9 mCi Tc99m tetrofosmin (Myoview). The patient was infused intravenously with Lexiscan (Regadenoson). Then, 88.2 mCi Tc99m te trofosmin (Myoview) was administered intravenously, and stress images were obtained. Data was reconst ructed into short axis and horizontal and vertical long axis SPECT images. Gated SPECT images were al so obtained. COMPARISON: None. FINDINGS: There is no definite reversible or fixed perfusion abnormality to suggest ischemia or infar ction. There is normal left ventricular chamber size, wall motion and ejection fraction. Left ventr icular ejection fraction measures >70%. IMPRESSION: 1. Normal myocardial perfusion at rest and during stress. 2. Left ventricular ejection fraction measuring >70%. Reviewed, dictated and finalized at location A. E SUPERVISOR
--- NOTE | 2023-04-25 08:59 | EST_ITS ---
Patient Info Name: Amadou Houston Age: 77 years : 1945 Gender: Male Ht: 71 in Wt: 214 lbs BSA: 2.23 m2 HR: 72 bpm BP: 137 / 71 mmHg Exam Date: 04/25/2023 11:38 AM Exam Location: Echo Lab Patient Status: Outpatient Admit Date: 04/25/2023 Staff Ordering Physician: Jordan Cabrera MD Attending Provider: Jordan Cabrera MD Exercise Technologist: Melody Patel LIZBETH Exercise Physician: Lowell Klein DO Exam Type: CA stress radha w NM Study Info A regadenoson stress test was performed. Summary 1. 1. Negative lexiscan stress test for ischemic ST changes by ECG criteria. 2. 2. Stable hemodynamics throughout the test. 3. 3. Nuclear scan to follow and will be reported separately. Please correlate with it. 4. 4. Patient informed of the above results. Protocol: Lexiscan Stress ECG Details Stage: REST Duration (min): 1 min : 0 sec HR (bpm): 75 SBP (mmHg): 137 DBP (mmHg): 71 Stage: REST Duration (min): 8 min : 6 sec HR (bpm): 80 SBP (mmHg): 137 DBP (mmHg): 71 Stage: STAGE 1 Duration (min): 0 min : 59 sec HR (bpm): 86 SBP (mmHg): 146 DBP (mmHg): 76 Stage: RECOVERY Duration (min): 1 min : 0 sec HR (bpm): 88 SBP (mmHg): 146 DBP (mmHg): 76 Stage: RECOVERY Duration (min): 2 min : 0 sec HR (bpm): 87 SBP (mmHg): 146 DBP (mmHg): 76 Stage: RECOVERY Duration (min): 3 min : 0 sec HR (bpm): 83 SBP (mmHg): 126 DBP (mmHg): 71 Stage: RECOVERY Duration (min): 3 min : 3 sec HR (bpm): 84 SBP (mmHg): 126 DBP (mmHg): 71 Rest HR: 80 bpm Peak HR: 95 bpm Rest Sys BP: 137 mmHg Peak Sys BP: 146 mmHg Max Pred HR: 143 bpm % Max Pred HR: 66 % Target HR: 122 bpm Max RPP: 13,870 bpm*mmHg Termination Reason: Completed protocol Cardiac Symptoms: Shortness of breath Total Time: 1 min : 0 sec Rest Diallo BP: 71 mmHg Peak D[place]lo BP: 76 mmHg Total Dose: 0.4 mg Resting ECG Atrial fibrillation. Stress ECG No ST changes. Arrhythmias No other arrhythmias. Report Signatures
--- NOTE | 2023-04-25 11:02 | ECHO_ITS ---
Patient Info Name: Amadou Houston Age: 77 years : 1945 Gender: Male Ht: 71 in Wt: 214 lbs BSA: 2.23 m2 HR: 79 bpm BP: 120 / 70 mmHg Technical Quality: Fair Exam Date: 04/25/2023 10:17 AM Exam Location: Echo Lab Patient Status: Outpatient Admit Date: 04/25/2023 Staff Ordering Physician: Jordan Cabrera MD Tools [employer] Parts Attendant: Daria Guzman RDCS Attending Provider: Jordan Cabrera MD Exam Type: CA echo doppler color flow Study Info Indications R06.02 - Shortness of breath Complete two-dimensional, color flow and Doppler transthoracic echocardiogram is performed. Summary 1. Complete two-dimensional, color flow and Doppler transthoracic echocardiogram is performed. 2. Left ventricular chamber dimension is normal. 3. Left ventricular systolic function is normal, estimated at 60-65%. 4. There is mild concentric increased left ventricular wall thickness. 5. The left ventricular diastolic function is abnormal. 6. E/e' 13 is mildly elevated. 7. Left atrial chamber dimension is mildly enlarged. 8. There is moderate aortic valve sclerosis. 9. There is mild-moderate aortic valve stenosis with a peak velocity of 239 cm/s, mean gradient of 14 mmHg, and aortic valve area of 1.5 cm2. 10. There is mild aortic valve regurgitation. 11. There is mild mitral valve regurgitation. 12. There is trace tricuspid valve regurgitation. 13. Mild pulmonary hypertension, estimated pulmonary arterial systolic pressure is 40 mmHg. Left Ventricle E/e' 13 is mildly elevated. Left ventricular chamber dimension is normal. Left ventricular systolic function is normal, estimated at 60-65%. There is mild concentric increased left ventricular wall thickness. The left ventricular diastolic function is abnormal. Right Ventricle Right ventricular chamber dimension is normal. Right ventricular systolic function is normal. Left Atria Left atrial chamber dimension is mildly enlarged. Right Atria Right atrial chamber dimension is normal. Aortic Valve The aortic valve is trileaflet. There is moderate aortic valve sclerosis. There is mild-moderate aortic valve stenosis with a peak velocity of 239 cm/s, mean gradient of 14 mmHg, and aortic valve area of 1.5 cm2. There is mild aortic valve regurgitation. Pulmonic Valve There is no pulmonic regurgitation. Mitral Valve There is no mitral valve stenosis. There is mild mitral valve regurgitation. Tricuspid Valve There is trace tricuspid valve regurgitation. Mild pulmonary hypertension, estimated pulmonary arterial systolic pressure is 40 mmHg. Pericardium/Pleural There is no pericardial effusion. Inferior Vena Cava Normal inferior vena cava with >50% collapse upon inspiration consistent with normal right atrial pressure, 5 mmHg. Aorta The aortic root size at the sinus of Valsalva is normal. Left Ventricular Outflow Tract Name Value Normal LVOT 2D LVOT Diameter 1.9 cm LVOT Doppler LVOT Peak Velocity 125 cm/s LVOT Peak Gradient 5 mmHg LVOT Mean Gradient 3 mmHg LVOT VTI 29 cm LVOT VTI/AV VTI Ratio 0.5 LVOT Stroke Volume
== END 2023-04-25 08:56 | disposition home or self-care (01) ==
PROVIDERS: PCP Family Medicine; Visit Provider Family Medicine
DX: R06.02 Shortness of breath (principal); R60.0 Localized edema; I08.3 Combined rheumatic disorders of mitral, aortic and tricuspid valves
CPT/HCPCS: 78452; 93017; 93306; A9502; J2785